=== PATIENT | male | born 1980 | race Caucasian/White ===

== ENCOUNTER → 2016-09-25 | Day surgery (SDC) | payer OTHER ==
[~2016-09-25] VITALS: Ht 177.8 cm; Wt 72.0 kg
[~2016-09-25] MED LIST: BACL20TA PO; BACT800T5 PO; CEPH-459 PO; CITA20TA4 PO; DEXAMETHASONE SOD PHOS 4 MG/ML VIAL ONE; DO NOT ADM ANY ANTICOAGULANT DRUGS XX PRN; DULC10SU3 RECTAL; FLUD.1 PO; GABA300C5 PO; GABA600T PO; HYDR-3535 PO; INSULIN HUMAN REGULAR 1,000 UNITS/10 ML VIAL SQ PRN; LACTATED RINGER'S 1000 ML IV SCH; LIDO 2% TOP; METOPROLOL TARTRATE 25 MG TAB PO PRN; MIDAZOLAM HCL 2 MG/2 ML VIAL ONE; ONABOTULINUMTOXINA INJ 100 UNITS/VIAL SCH; ONDANSETRON HCL 4 MG/2 ML VIAL IV PUSH PRN; PERC5TAB12 PO; PROPOFOL 200 MG/20 ML AMP IV ONE; SKIN PREP TOP; SODIUM CHLORID 0.9% 500 ML IV SCH; XANA1TAB2 PO; [UNRECOGNIZED DRUG - SUPPLY] TOP; [UNRECOGNIZED DRUG - SUPPLY] TOP; ceFAZolin 1,000 MG/NS 100 ML IV SCH; ceFAZolin 2 GM PREMIX 50 ML ONE; ePHEDrine/NS 50 MG/5 ML SYR IV ONE; oxyCODONE/ACETAMINOPHEN 5 MG/325 MG TAB PO PRN
[2016-09-25 08:05] VITALS: BP 97/57; PULSE 51; RESP 20; TEMP 97.5; O2SAT 98
[2016-09-25 08:20] LABS: AUTOMATED NEUTROPHIL # 3.7 TH/MM3 (1.8-7.7); BASOPHIL % 0.6 % (0.0-2.0); EOSINOPHIL # 0.2 TH/MM3 (0-0.4); EOSINOPHIL % 3.6 % (0.0-4.0); HEMATOCRIT 38.7 % (39.0-51.0); HEMO FLAGS DIFF FINAL; LYMPH % 30.7 % (9.0-44.0); MEAN CELL VOLUME 90.7 FL (80.0-100.0); MEAN CORPUSCULAR HEMOGLOBIN 30.8 PG (27.0-34.0); MEAN CORPUSCULAR HGB CONC 33.9 % (32.0-36.0); MONO % 6.8 % (0.0-8.0); NEUT % 58.3 % (16.0-70.0); PLATELET COUNT 190 TH/MM3 (150-450); RED BLOOD COUNT 4.27 MIL/MM3 (4.50-5.90); RED CELL DISTRIBUTION WIDTH 12.8 % (11.6-17.2); WHITE BLOOD COUNT 6.4 TH/MM3 (4.0-11.0)
[2016-09-25 14:01] VITALS: BP 148/82; PULSE 54; RESP 16; TEMP 98; O2SAT 98
--- NOTE | 2016-09-28 13:43 | MP ---
cc: CHARANJIT AGUILLON MD DATE OF SURGERY 09/25/2016 INDICATIONS FOR PROCEDURE This is the case of a pleasant 35-year-old gentleman with hyper-reflexive neurogenic bladder dysfunction who presents today for cystoscopy and intravesical Botox injection therapy. PREOPERATIVE DIAGNOSIS Hyper-reflexic neurogenic bladder. POSTOPERATIVE DIAGNOSIS Hyper-reflexic neurogenic bladder. ATTENDING SURGEON Dr. Aguillon ANESTHESIA General PROCEDURES PERFORMED Cystoscopy and intravesical Botox injection therapy. COMPLICATIONS None ESTIMATED BLOOD LOSS Minimal SPECIMENS None OPERATIVE PROCEDURE IN DETAIL The patient was brought to the operating room suite and placed supine on the cystoscopy table. He was then placed under general anesthesia. He was then repositioned in the dorsal lithotomy position and prepped and draped in normal sterile fashion. After an appropriate time-out was undertaken, I proceeded with cystoscopic evaluation utilizing the rigid cystoscope with the 19-Bengali sheath and the 30 degrees lens. The urethra was patent without stricture formation. The prostatic urethra was non-obstructing. Further passive of the cystoscope within the urinary bladder revealed both right and left ureteral orifices being in correct anatomic position effluxing clear yellow urine. There were no bladder mucosal lesions, calculi or diverticular formation. Next, I utilized the Coloplast 5-Bengali flexible injection needle and proceeded with the Botox injections. The patient received a total of 200 units of Botox which was injected diffusely throughout the bladder. I spaced each injection site approximately 1 cm from the other and injected directly into the detrusor muscle. The posterior lateral warren and anterior wall were all injected. There was some oozing of blood from some of the injection sites at the conclusion of the procedure and thus an indwelling Rendno catheter was placed. A 16-Bengali 10 cc Rendon catheter was utilized. The patient was transferred to the PACU in satisfactory condition having tolerated the procedures well. MD NAJMA Soto/MICHAEL /11:49 AM /1:38 PM
== END | disposition home or self-care (01) ==
LOC: HSDC 07:08
PROVIDERS: ATTEND Urology
DX: N31.1 Reflex neuropathic bladder, not elsewhere classified (principal); N39.498 Other specified urinary incontinence; G82.20 Paraplegia, unspecified
CPT/HCPCS: 00910; 52287; 85025; J0585; J0690; J1100; J2250

== ENCOUNTER → 2017-07-06 | Day surgery (SDC) | payer MEDICAID, OTHER ==
[~2017-07-06] VITALS: Ht 177.8 cm; Wt 68.0 kg
[~2017-07-06] MED LIST changes: -CEPH-459 PO; +CHLORHEXIDINE GLUCONATE 2 % 1 PACK (2 CLOTHS) TOPICAL PRN; -DEXAMETHASONE SOD PHOS 4 MG/ML VIAL ONE; -DO NOT ADM ANY ANTICOAGULANT DRUGS XX PRN; -FLUD.1 PO; +GABA100C4 PO; -GABA300C5 PO; -GABA600T PO; +HYDR-3583 PO; +LACTATED RINGER'S 1000 ML IV PRN; -LACTATED RINGER'S 1000 ML IV SCH; +LIDOCAINE 1%/EPINEPHrine 1:100,000 SOLN 50 ML VIAL ONE; +MIDAZOLAM HCL 2 MG/2 ML VIAL IV ONE; +MIDO10TA PO; +MORPHINE SULFATE 2 MG/ML INJ IV PRN; +NYST100084 TOPICAL; -ONABOTULINUMTOXINA INJ 100 UNITS/VIAL SCH; +ONDANSETRON HCL 4 MG/2 ML VIAL IV PRN; -ONDANSETRON HCL 4 MG/2 ML VIAL IV PUSH PRN; -PERC5TAB12 PO; +POVIDONE IODINE 5% (ANTISEPSIS KIT) 4 APPLICATIONS EACH NARE PRN; -SKIN PREP TOP; +SODIUM CHLORID 0.9% 500 ML IV PRN; -SODIUM CHLORID 0.9% 500 ML IV SCH; +VESI5TAB2 PO; +ZINC20OI TOPICAL; -ceFAZolin 2 GM PREMIX 50 ML ONE; -ePHEDrine/NS 50 MG/5 ML SYR IV ONE; +oxyCODONE/ACETAMINOPHEN 5 MG/325 MG TAB ONE
[2017-07-06 10:03] LABS: AUTOMATED NEUTROPHIL # 5.9 TH/MM3 (1.8-7.7); BASOPHIL % 0.5 % (0.0-2.0); EOSINOPHIL # 0.4 TH/MM3 (0-0.4); HEMATOCRIT 37.2 % (39.0-51.0); LYMPH % 20.4 % (9.0-44.0); LYMPHOCYTE # 1.8 TH/MM3 (1.0-4.8); MEAN CELL VOLUME 92.8 FL (80.0-100.0); MEAN CORPUSCULAR HEMOGLOBIN 32.7 PG (27.0-34.0); MEAN CORPUSCULAR HGB CONC 35.3 % (32.0-36.0); MONO % 8.1 % (0.0-8.0); PLATELET COUNT 224 TH/MM3 (150-450); RED BLOOD COUNT 4.01 MIL/MM3 (4.50-5.90); RED CELL DISTRIBUTION WIDTH 12.3 % (11.6-17.2); WHITE BLOOD COUNT 8.9 TH/MM3 (4.0-11.0)
[2017-07-06 10:05] LABS: HEMO FLAGS DIFF FINAL
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
[2017-07-06 11:51] VITALS: BP 98/58; PULSE 67; RESP 18; TEMP 97.2; O2SAT 95
== END | disposition home or self-care (01) ==
LOC: HSDC 08:39
PROVIDERS: ATTEND Urology
DX: N31.9 Neuromuscular dysfunction of bladder, unspecified (principal); N39.41 Urge incontinence
CPT/HCPCS: 00300; 64561; 76000; 85025; J0690; J2250; J3010; J7120; C1778

== ENCOUNTER 2018-02-22 16:06 | Emergency (ER) | payer OTHER ==
[~2018-02-22] VITALS: Ht 177.8 cm; Wt 68.0 kg
[~2018-02-22 16:06] MED LIST changes: -BACT800T5 PO; -CHLORHEXIDINE GLUCONATE 2 % 1 PACK (2 CLOTHS) TOPICAL PRN; +CIPR500T2 PO; -HYDR-3535 PO; -INSULIN HUMAN REGULAR 1,000 UNITS/10 ML VIAL SQ PRN; -LACTATED RINGER'S 1000 ML IV PRN; -LIDO 2% TOP; -LIDOCAINE 1%/EPINEPHrine 1:100,000 SOLN 50 ML VIAL ONE; -METOPROLOL TARTRATE 25 MG TAB PO PRN; -MIDAZOLAM HCL 2 MG/2 ML VIAL IV ONE; -MIDAZOLAM HCL 2 MG/2 ML VIAL ONE; -MORPHINE SULFATE 2 MG/ML INJ IV PRN; -ONDANSETRON HCL 4 MG/2 ML VIAL IV PRN; -POVIDONE IODINE 5% (ANTISEPSIS KIT) 4 APPLICATIONS EACH NARE PRN; -PROPOFOL 200 MG/20 ML AMP IV ONE; -SODIUM CHLORID 0.9% 500 ML IV PRN; -[UNRECOGNIZED DRUG - SUPPLY] TOP; -[UNRECOGNIZED DRUG - SUPPLY] TOP; -ceFAZolin 1,000 MG/NS 100 ML IV SCH; -oxyCODONE/ACETAMINOPHEN 5 MG/325 MG TAB ONE; -oxyCODONE/ACETAMINOPHEN 5 MG/325 MG TAB PO PRN
[2018-02-22 16:40] VITALS: BP 146/75; PULSE 62; RESP 15; TEMP 98.1; O2SAT 98
[2018-02-22 19:28] VITALS: BP 151/87; PULSE 53; RESP 16; O2SAT 99
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
[2018-02-22 20:19] LABS: INTERNATIONAL NORMALIZED RATIO 1.1 RATIO; PROTHROMBIN TIME - PATIENT 10.7 SEC (9.8-11.6)
[2018-02-22 20:38] LABS: BACTERIA, URINE FEW /hpf; BILIRUBIN, URINE NEG (NEG); BLOOD, URINE LARGE (NEG); GLUCOSE,URINE NEG (NEG); HYALINE CAST, URINE 3 /lpf (RARE); KETONE, URINE NEG (NEG); MUCUS URINE FEW /lpf (OCC); NITRITE,URINE NEG (NEG); SQUAMOUS EPITHELIAL CELL URINE <1 /hpf (0-5); URINE LEUKOCYTE ESTERASE MOD (NEG)
[2018-02-22 20:40] LABS: AUTOMATED NEUTROPHIL # 5.7 TH/MM3 (1.8-7.7); BASOPHIL # 0.1 TH/MM3 (0-0.2); BASOPHIL % 0.6 % (0.0-2.0); EOSINOPHIL # 0.4 TH/MM3 (0-0.4); HEMATOCRIT 42.1 % (39.0-51.0); HEMOGLOBIN 14.2 GM/DL (13.0-17.0); LYMPH % 32.3 % (9.0-44.0); LYMPHOCYTE # 3.3 TH/MM3 (1.0-4.8); MEAN CORPUSCULAR HEMOGLOBIN 30.7 PG (27.0-34.0); MEAN CORPUSCULAR HGB CONC 33.7 % (32.0-36.0); MEAN PLATELET VOLUME 9.9 FL (7.0-11.0); MONO % 6.5 % (0.0-8.0); MONOCYTE # 0.7 TH/MM3 (0-0.9); NEUT % 56.6 % (16.0-70.0); PLATELET COUNT 256 TH/MM3 (150-450); RED BLOOD COUNT 4.63 MIL/MM3 (4.50-5.90); RED CELL DISTRIBUTION WIDTH 12.5 % (11.6-17.2); WHITE BLOOD COUNT 10.1 TH/MM3 (4.0-11.0)
[2018-02-22 20:40] LABS: URINE COLOR LIGHT-RED (YELLW/STRAW)
[2018-02-22 20:47] LABS: BICARBONATE 28.7 MEQ/L (21.0-32.0); CALCIUM 9.2 MG/DL (8.5-10.1); CREATININE 0.63 MG/DL (0.60-1.30); MAGNESIUM 2.1 MG/DL (1.5-2.5)
--- NOTE | 2018-02-22 20:53 | RADRPT ---
EXAM DATE: 02/22/2018 8:08 PM EDT AGE/SEX: 37 years / Male INDICATIONS: Hematuria, urinating blood clots. CLINICAL DATA: This is the patient's initial encounter. Patient reports that signs and symptoms have been present for 1 day and indicates a pain score of 5/10. MEDICAL/SURGICAL HISTORY: Cardiovascular disease. Osteomyelitis. . Bladder surgery. RADIATION DOSE: 9.29 CTDI (mGy) COMPARISON: No prior exams available for comparison. TECHNIQUE: Multiple contiguous axial images were obtained through the abdomen. Images were obtained using multiple row detector helical technique. Using automated exposure control and adjustment of the mA and/or kV according to patient size, radiation dose was kept as low as reasonably achievable to o btain optimal diagnostic quality images. DICOM format image data is available electronically for rev iew and comparison. FINDINGS: There is minimal scar in both lung bases. The liver and spleen are normal in size and no focal defect s are identified. The gallbladder and pancreas are unremarkable. No intrahepatic or extrahepatic du ctal dilatation is seen. An inferior vena cava filter is in place. The adrenal glands are unremarkab le. The kidneys are normal bilaterally without evidence of mass or hydronephrosis. There is a large amount of fecal material throughout the colon consistent with constipation. Within the pelvis there is severe thickening of the bladder wall perivesical stranding likely reflect ing inflammatory or infectious process. There are findings of decubitus ulcer with gas in the subcuta neous tissues as well as the gluteus muscle on the left. There is sclerosis in the sacrum which may r eflect osteomyelitis. CONCLUSION: Severe thickening of the bladder wall likely reflecting infectious or inflammatory process. Cystoscop y is recommended for further evaluation if clinically indicated. . Findings of sacral decubitus containing gas with possible sacral osteomyelitis Electronically signed by: Fco Martinez MD 02/22/2018 8:52 PM EDT
[2018-02-22] MEDS ORDERED: MIDO10TA PO (21:13)
[2018-02-22] MEDS ORDERED: VANCOMYCIN INJ 1,000 MG in SODIUM CHLOR 0.9% 250 ML INJ 250 ML IV ONE (21:15)
[2018-02-22] MEDS ORDERED: BACT800T5 PO (21:28)
--- NOTE | 2018-02-22 21:33 | PD ---
Physical Exam Narrative GENERAL: 37 y/o male in no apparent distress HEAD: Atraumatic. Normocephalic. EYES: No scleral icterus. No injection or drainage. ENT: No nasal bleeding or discharge. Mucous membranes pink and moist. NECK: Trachea midline. CARDIOVASCULAR: Regular rate and rhythm. RESPIRATORY: No accessory muscle use. MUSCULOSKELETAL: No obvious deformities. No clubbing. No cyanosis. NEUROLOGICAL: Awake and alert. Normal speech. PSYCHIATRIC: Appropriate mood and affect; insight and judgment normal. Data Data Last Documented VS Vital Signs Date Time Temp Pulse Resp B/P (MAP) Pulse Ox O2 Delivery O2 Flow Rate FiO2 02/22/18 19:28 53 16 151/87 (108) 99 Room Air 02/22/18 16:40 98.1 Orders Orders Complete Blood Count With Diff (02/22/18 18:42) Basic Metabolic Panel (Bmp) (02/22/18 18:42) Prothrombin Time / Inr (Pt) (02/22/18 18:42) Act Partial Throm Time (Ptt) (02/22/18 18:42) Urinalysis - C+S If Indicated (02/22/18 18:42) Magnesium (Mg) (02/22/18 18:42) Iv Access Insert/Monitor (02/22/18 18:42) Ct Abd/Pel W/O Iv Contrast (02/22/18 ) Urine Culture (02/22/18 19:40) Vancomycin Inj (Vancomycin Inj) (02/22/18 21:15) Ed Discharge Order (02/22/18 21:29) Labs Laboratory Tests Test 02/22/18 19:25 02/22/18 19:40 White Blood Count 10.1 TH/MM3 Red Blood Count 4.63 MIL/MM3 Hemoglobin 14.2 GM/DL Hematocrit 42.1 % Mean Corpuscular Volume 91.0 FL Mean Corpuscular Hemoglobin 30.7 PG Mean Corpuscular Hemoglobin Concent 33.7 % Red Cell Distribution Width 12.5 % Platelet Count 256 TH/MM3 Mean Platelet Volume 9.9 FL Neutrophils (%) (Auto) 56.6 % Lymphocytes (%) (Auto) 32.3 % Monocytes (%) (Auto) 6.5 % Eosinophils (%) (Auto) 4.0 % Basophils (%) (Auto) 0.6 % Neutrophils # (Auto) 5.7 TH/MM3 Lymphocytes # (Auto) 3.3 TH/MM3 Monocytes # (Auto) 0.7 TH/MM3 Eosinophils # (Auto) 0.4 TH/MM3 Basophils # (Auto) 0.1 TH/MM3 CBC Comment AUTO DIFF Differential Comment AUTO DIFF CONFIRMED Platelet Estimate NORMAL Platelet Morphology Comment GIANT Prothrombin Time 10.7 SEC Prothromb Time International Ratio 1.1 RATIO Activated Partial Thromboplast Time 24.3 SEC Blood Urea Nitrogen 8 MG/DL Creatinine 0.63 MG/DL Random Glucose 101 MG/DL Calcium Level 9.2 MG/DL Magnesium Level 2.1 MG/DL Sodium Level 137 MEQ/L Potassium Level 4.2 MEQ/L Chloride Level 100 MEQ/L Carbon Dioxide Level 28.7 MEQ/L Anion Gap 8 MEQ/L Estimat Glomerular Filtration Rate 143 ML/MIN Urine Color LIGHT-RED Urine Turbidity HAZY Urine pH 8.0 Urine Specific [place] 1.005 Urine Protein 100 mg/dL Urine Glucose (UA) NEG mg/dL Urine Ketones NEG mg/dL Urine Occult Blood LARGE Urine Nitrite NEG Urine Bilirubin NEG Urine Urobilinogen LESS THAN 2 mg/dL Urine Leukocyte Esterase MOD Urine RBC 25 /hpf Urine WBC 48 /hpf Urine Squamous Epithelial Cells <1 /hpf Urine Bacteria FEW /hpf Urine Hyaline Casts 3 /lpf Urine Mucus FEW /lpf Microscopic Urinalysis Comment CULTURE INDICATED MDM Supervised Visit with JONES: Yes Interpretation(s) CBC & BMP Diagram 02/22/18 19:25 Calcium Level 9.2, Magnesium Level 2.1 Last 24 hours Impressions Abdomen/Pelvis CT 02/22/18 0000 Signed Impressions: CONCLUSION: Severe thickening of the bladder wall likely reflecting infectious or inflammat ory process. Cystoscopy is recommended for further evaluation if clinically ind icated. . Findings of sacral decubitus containing gas with possible sacral osteomyelitis Narrative Course I, Dr. park, have reviewed the advance practice practitioner's documentation and am in agreement, met with the patient face to face, made the diagnosis, and the medical decision making was done by me. *My assessment and Findings: 37-year-old male who presents with hematuria. Found to have cystitis and incidentally on CT his sacral wound shows gas and concerning findings for osteomyelitis. I recommended that patient stay for IV antibiotic therapy and further workup. He states that he is not going to stay after lengthy discussion with nurse at bedside. AMA: The risks of leaving against medical advice without further evaluation treatment were discussed with the patient. These risks include cardiac dysfunction, cardiac dysrhythmia, possible heart attack, possible stroke or . The patient indicated understanding of these risks and appeared to have the capacity to make this decision. Diagnosis Primary Impression: UTI (lower urinary tract infection) Additional Impression: Sacral osteomyelitis Patient Instructions: General Instructions Additional Instruction: Return for completion of your workup as soon as possible Med/Other Pt SpecificInfo: Prescription(s) given Scripts Sulfamethoxazole-Trimethoprim (Bactrim DS) 800-160 Mg Tab 1 TAB PO BID for Infection for 14 Days, #28 TAB 0 Refills Prov: Cristy Park MD 02/22/18 Disposition: 07 AGAINST MEDICAL ADVICE Condition: Stable Cristy Park MD Feb 22, 2018 21:33
== END 2018-02-22 22:54 | disposition left against medical advice (07) ==
LOC: NEPE 16:06
DX: N39.0 Urinary tract infection, site not specified (principal); M46.28 Osteomyelitis of vertebra, sacral and sacrococcygeal region; G82.50 Quadriplegia, unspecified; F32.9 Major depressive disorder, single episode, unspecified; Z79.899 Other long term (current) drug therapy
CPT/HCPCS: 74176; 80048; 81001; 83735; 85025; 85610; 85730; 87086

== ENCOUNTER 2018-02-27 13:07 | Inpatient (IN) ==
[2018-03-03] MEDS ORDERED: Naloxone Inj 0.4 MG/ML Vial IV.PUSH PRN (00:01)
[2018-03-03] MEDS ORDERED: Vancomycin Consult Pharmacy 1 EACH OTHER SCH ×2 (00:01→17:00)
[2018-03-03] MEDS ORDERED: Heparin Central Flush 100 UNIT/ML 5 ML Vial IV.FLUSH PRN (00:01)
[2018-03-03] MEDS ORDERED: Indomethacin 25 MG Capsule PO PRN (00:01)
[2018-03-03] MEDS ORDERED: Vancomycin Inj 1,000 MG in Sodium Chlor 0.9% Inj 250 ML IV.SIG SCH (01:00)
[2018-03-03] MEDS: Vancomycin Inj 1,000 MG in Sodium Chlor 0.9% Inj 250 ML IV.SIG SCH ×3 (03:25→17:07)
[2018-03-03] MEDS: Piperacil/Tazo 3.375 GM Premix 50 ML IV.SIG SCH ×2 (03:26→10:03)
[2018-03-03] MEDS ORDERED: Bisacodyl 10 MG Supp RECTAL PRN (09:00)
[2018-03-03] MEDS: amLODIPine 5 MG Tablet PO SCH (09:01)
[2018-03-03] MEDS: Lactobacillus Acidophilus/L. Spores Tablet PO SCH ×3 (09:01→17:07)
[2018-03-03] MEDS: Heparin Central Flush 100 UNIT/ML 5 ML Vial IV.FLUSH SCH (09:07)
--- NOTE | 2018-03-03 15:07 | P.DCO ---
- Physical Therapy Order: Evaluate and treat - Occupational Therapy Order: Evaluate and treat - Home Health Nursing Order: Wound care and dressing changes - Certification I have seen patient Luke Perez IV on 03/03/18. My clinical findings support the need for the requested home health care services because: Limited mobility due to disease progression, Infection with risk of complications I certify that my clinical findings support that this patient is homebound because: Unsafe to leave home unassisted
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
[2018-03-03] MEDS ORDERED: Enoxaparin Inj 40 MG/0.4 ML Syringe SQ SCH (20:00)
[2018-03-03] MEDS ORDERED: Gabapentin 300 MG Capsule PO SCH (21:00)
[2018-03-04] MEDS ORDERED: Pharmacy Ordered Lab Info OTHER ONE ×2 (00:45)
[2018-03-04 06:02] LABS: Glomerular Filtration Rate Greater Than 89 mL/min (>89)
[2018-03-04] MEDS: amLODIPine 5 MG Tablet PO SCH (09:53)
[2018-03-04] MEDS: Lactobacillus Acidophilus/L. Spores Tablet PO SCH ×3 (09:54→17:03)
[2018-03-04] MEDS: Vancomycin Inj 1,000 MG in Sodium Chlor 0.9% Inj 250 ML IV.SIG SCH ×2 (09:58→16:54)
[2018-03-04] MEDS: Heparin Central Flush 100 UNIT/ML 5 ML Vial IV.FLUSH SCH (10:02)
--- NOTE | 2018-03-04 10:41 | P.PN ---
Subjective Interval history: Delayed entry from 03/03/18 Patient is supposed to be discharged yesterday so we placed discharge summary note however patient was not get discharge, outpatient IV antibiotic arrangement was not ready yet Patient seen and examined he was doing well, headache improved, he is now on Norvasc 2.5 mg patient stated he cannot tolerate blood pressure above 140 that gives him headache Physical Exam Vital signs: Vital Signs 03/03/18 12:00 03/03/18 16:00 03/03/18 20:00 Temperature 98.3 F 98 F 98.0 F Pulse Rate 73 69 Respiratory Rate 18 18 18 Blood Pressure 120/65 147/77 H 119/63 Pulse Oximetry 97 97 96 03/03/18 22:00 03/04/18 00:00 03/04/18 02:33 Temperature 98.7 F Pulse Rate 83 75 Respiratory Rate 17 18 Blood Pressure 143/85 H 157/94 H Pulse Oximetry 97 03/04/18 04:00 Temperature 97.7 F Pulse Rate 72 Respiratory Rate 20 Blood Pressure 131/70 Pulse Oximetry 97 Intake & Output 03/03/18 03/04/18 03/04/18 18:59 06:59 18:59 Intake Total 700 / 700 2220 / 2220 Output Total 1999 Balance 700 / 700 220 / 220 Intake: IV 700 / 700 Zosyn 3.375 GM Premix 50 ML @ 100 / 100 100 mls/hr IV.SIG Q8H BURT Rx#: [id number] Vancomycin Inj 1,000 MG In NS 500 / 500 Inj 250 ML @ 250 mls/hr IV.SIG Q8H BURT Rx#:[id number] Flagyl 500 MG Inj 100 ML @ 100 100 / 100 mls/hr IV.SIG Q8H BURT Rx#: [id number] Oral 2220 / 2220 Output: Urine 1999 Narrative: GENERAL: This is a well-nourished, well-developed patient, in no apparent distress. CARDIOVASCULAR: RRR, no gallops, or rubs. RESPIRATORY: Fair air entry bilaterally. No W, R, or R GASTROINTESTINAL: Abdomen soft, non-tender, nondistended. Positive bowel sounds MUSCULOSKELETAL: Extremities without clubbing, cyanosis, or edema. Pedal pulses appreciated NEUROLOGICAL: Awake and alert. Moves all extremity. Normal speech.no focal neurological deficit Results - Labs CBC & Chem 7: 02/28/18 07:32 03/04/18 04:46 Laboratory Results - last 24 hr 03/04/18 03/04/18 00:45 04:46 Creatinine 0.35 L Estimated GFR Greater than 89 Vancomycin Trough 14.5 H Assessment and Plan - Assessment (1) Sacral decubitus ulcer Code(s): L89.159 - Pressure ulcer of sacral region, unspecified stage Status: Acute (2) Osteomyelitis Code(s): M86.9 - Osteomyelitis, unspecified Status: Acute - Plan 37-year-old male with past medical history significant for spinal cord injury, autonomic dysreflexia, neurogenic bladder, hypertension, and chronic sacral ulcer who is followed by Dr. Rivera in wound care center. Patient recently presents to the emergency department on 02/22 with complaints of hematuria, scans were concerning for possible infection/inflammatory process along with noted possible sacral osteomyelitis. Patient left AGAINST MEDICAL ADVICE, compliant with oral Bactrim prescription. He returns today to the emergency department after being instructed by wound care center. 02/28: Continue IV antibiotic as below per ID recommendation, monitor for any fever 03/01: ID stopped Zosyn and Flagyl, recommended vancomycin for 6 weeks until April 10, PICC line ordered, discharge once all arrangement done for outpatient IV antibiotic, Dr. Rivera will arrange for outpatient hyperbaric treatment for decubitus ulcer 03/02: Acute headache without nausea or vomiting, Tylenol [place] and morphine did not help, denied history of migraine, will place him on low-dose Norvasc 2.5, indomethacin as needed every 4 hours for 2 days 03/03: Headache improved, discussed with case preparer and liner and nursing, and the patient , medically stable for discharge once outpatient IV antibiotic arrangement is done, home health care ordered A/P, Chronic sacral/coccyx wound Meets SIRS Failed outpatient treatment -Hypotensive and admission with BP 88/48, CBC with no leukocytosis, afebrile, suspected source of infection osteomyelitis versus UTI - CT of the abdomen and pelvis completed on 02/22 reviewed, severe thickening of the bladder wall likely reflecting infectious or inflammatory process. Sacral decubitus containing cast with possible sacral osteomyelitis. -Patient received 3 L of IV bolus in the ER along with dose of Zosyn and Vanco. We will continue IV Zosyn, vancomycin, and Flagyl -Blood cultures 2 pending, coccyx wound culture pending -Obtain MRI of sacrum, consult infectious disease for ongoing recommendations, appreciate assistance -Consult wound care, appreciate ongoing assistance -Pain management with p.o. [place], IV morphine for breakthrough pain or inability to take p.o. Neurogenic bladder Recent hematuria -Urine culture collected on 02/22 with 10,000-50,000 mixed slim - No ongoing hematuria for the past 2 days - H&H stable Nausea/vomiting -Reports last BM yesterday, no reports of diarrhea or constipation -Possibly related to infectious etiology, as needed Zofran, Reglan IV, diet as tolerated DVT prophylaxis-Lovenox
--- NOTE | 2018-03-04 16:12 | P.PNIM ---
Subjective Interval history: No acute complain discharge process ongoing awaiting arrangement for IV antibiotic outpatient Physical Exam Vital signs: Vital Signs 03/03/18 20:00 03/03/18 22:00 03/04/18 00:00 Temperature 98.0 F 98.7 F Pulse Rate 69 83 Respiratory Rate 18 17 18 Blood Pressure 119/63 143/85 H Pulse Oximetry 96 97 03/04/18 02:33 03/04/18 04:00 03/04/18 08:00 Temperature 97.7 F 98.0 F Pulse Rate 75 72 72 Respiratory Rate 20 20 Blood Pressure 157/94 H 131/70 146/88 H Pulse Oximetry 97 97 03/04/18 12:00 Temperature 97.8 F Pulse Rate 70 Respiratory Rate 20 Blood Pressure 117/59 L Pulse Oximetry 97 Intake & Output 03/03/18 03/04/18 03/04/18 18:59 06:59 18:59 Intake Total 700 / 700 2220 / 2220 Output Total 1999 / 1999 Balance 700 / 700 220 / 220 Intake: IV 700 / 700 Zosyn 3.375 GM Premix 50 ML @ 100 / 100 100 mls/hr IV.SIG Q8H BURT Rx#: [id number] Vancomycin Inj 1,000 MG In NS 500 / 500 Inj 250 ML @ 250 mls/hr IV.SIG Q8H BURT Rx#:[id number] Flagyl 500 MG Inj 100 ML @ 100 100 / 100 mls/hr IV.SIG Q8H BURT Rx#: [id number] Oral 2220 / 2220 Output: Urine 1999 Narrative: 37 years old male in no acute distress sitting on his chair, normal speech Results - Labs CBC & Chem 7: 02/28/18 07:32 03/04/18 04:46 Laboratory Results - last 24 hr 03/04/18 03/04/18 00:45 04:46 Creatinine 0.35 L Estimated GFR Greater than 89 Vancomycin Trough 14.5 H Assessment and Plan - Assessment (1) Sacral decubitus ulcer Code(s): L89.159 - Pressure ulcer of sacral region, unspecified stage Status: Acute (2) Osteomyelitis Code(s): M86.9 - Osteomyelitis, unspecified Status: Acute - Plan 37-year-old male with past medical history significant for spinal cord injury, autonomic dysreflexia, neurogenic bladder, hypertension, and chronic sacral ulcer who is followed by Dr. Rivera in wound care center. Patient recently presents to the emergency department on 02/22 with complaints of hematuria, scans were concerning for possible infection/inflammatory process along with noted possible sacral osteomyelitis. Patient left AGAINST MEDICAL ADVICE, compliant with oral Bactrim prescription. He returns today to the emergency department after being instructed by wound care center. 02/28: Continue IV antibiotic as below per ID recommendation, monitor for any fever 03/01: ID stopped Zosyn and Flagyl, recommended vancomycin for 6 weeks until April 10, PICC line ordered, discharge once all arrangement done for outpatient IV antibiotic, Dr. Rivera will arrange for outpatient hyperbaric treatment for decubitus ulcer 03/02: Acute headache without nausea or vomiting, Tylenol [place] and morphine did not help, denied history of migraine, will place him on low-dose Norvasc 2.5, indomethacin as needed every 4 hours for 2 days 03/03: Headache improved, discussed with case management rn and nursing, and the patient , medically stable for discharge once outpatient IV antibiotic arrangement is done, home health care ordered 03/04: Awaiting outpatient IV antibiotic arrangement to proceed with discharge A/P, Chronic sacral/coccyx wound Meets SIRS Failed outpatient treatment -Hypotensive and admission with BP 88/48, CBC with no leukocytosis, afebrile, suspected source of infection osteomyelitis versus UTI - CT of the abdomen and pelvis completed on 02/22 reviewed, severe thickening of the bladder wall likely reflecting infectious or inflammatory process. Sacral decubitus containing cast with possible sacral osteomyelitis. -Patient received 3 L of IV bolus in the ER along with dose of Zosyn and Vanco. We will continue IV Zosyn, vancomycin, and Flagyl -Blood cultures 2 pending, coccyx wound culture pending -Obtain MRI of sacrum, consult infectious disease for ongoing recommendations, appreciate assistance -Consult wound care, appreciate ongoing assistance -Pain management with p.o. [place], IV morphine for breakthrough pain or inability to take p.o. Neurogenic bladder Recent hematuria -Urine culture collected on 02/22 with 10,000-50,000 mixed slim - No ongoing hematuria for the past 2 days - H&H stable Nausea/vomiting -Reports last BM yesterday, no reports of diarrhea or constipation -Possibly related to infectious etiology, as needed Zofran, Reglan IV, diet as tolerated DVT prophylaxis-Lovenox
--- NOTE | 2018-03-04 17:13 | P.DCO ---
- Home Health Nursing Instructions: PICC line dressing changes and lab work for the Vanco levels - Certification I have seen patient Luke Perez IV on 03/04/18. My clinical findings support the need for the requested home health care services because: Infection with risk of complications I certify that my clinical findings support that this patient is homebound because: Unable to use public transportation
== END 2018-03-04 19:07 | disposition home or self-care (01) ==
LOC: N05 16:49
PROVIDERS: ADMIT Hospitalist; ATTEND Hospitalist